=== PATIENT | male | born 1950 ===

== ENCOUNTER 2025-05-23 13:56 | Emergency (ER) | payer SELFPAY ==
[~2025-05-23] VITALS: Ht 182.9 cm; Wt 83.9 kg
[2025-05-23] MEDS ORDERED: HYDROmorphone HCl/Pf 1MG SYR IV ONE (14:25)
== END 2025-05-23 15:33 | disposition home or self-care (01) ==
LOC: ER 13:56
DX: M54.50 Low back pain, unspecified (principal); Z53.21 Procedure and treatment not carried out due to patient leaving prior to being seen by health care provider; I10 Essential (primary) hypertension; E78.5 Hyperlipidemia, unspecified; K21.9 Gastro-esophageal reflux disease without esophagitis; M19.90 Unspecified osteoarthritis, unspecified site; I48.91 Unspecified atrial fibrillation; Z87.891 Personal history of nicotine dependence
CPT/HCPCS: 99284; J1171